=== PATIENT | male | born 1990 | race African-American/Black ===

== ENCOUNTER 2019-04-10 15:15 | Inpatient (IN) | payer OTHER ==
[2019-04-10 18:42] VITALS: BMI 26.9
--- NOTE | 2019-04-10 21:08 | HP ---
CIWA Score Nausea/Vomitin Muscle Tremors: 3 Anxiety: 3 Agitation: 1-Slight > Activity Paroxysmal Sweats: No Perspiration Orientation: 1-Uncertain about Date Tacttile Disturbances: 0-None Auditory Disturbances: 3-Moderate Harsh/Frighten Visual Disturbances: 3-Moderate Sensitivity Headache: 0-None Present CIWA-Ar Total Score: 17 - Admission Criteria OASAS Guidelines: Admission for Medically Managed Detox: Requires at least one of the followin. CIWA greater than 12 2. Seizures within the past 24 hours 3. Delirium tremens within the past 24 hours 4. Hallucinations within the past 24 hours 5. Acute intervention needed for co occurring medical disorder 6. Acute intervention needed for co occurring psychiatric disorder 7. Severe withdrawal that cannot be handled at a lower level of care (continued vomiting, continued diarrhea, abnormal vital signs) requiring intravenous medication and/or fluids 8. Patient presents the following: CIWA greater than 12 Admission Criteria Met: Admission criteria met Admitting History and Physical - Primary Care Physician PCP: Romario Rosario - Admission History Source: Patient Limitations to Obtaining History: No Limitations Admission ROS [facility] Chief Complaint: see if i can get myself together Allergies/Adverse Reactions: Allergies Allergy/AdvReac Type Severity Reaction Status Date / Time No Known Allergies Allergy Verified 04/10/19 18:31 History of Present Illness: etoh use began 10 y ago age [age] became problemtaic age [age] previous cocaine use was problematic began age 22 - last use 6 mos ago has urges but doesnt use marijuana use began age 14-13 [place] and isolates, shut off hasd [facility] in [place] [facility]4 years - Ebola screening Have you traveled outside of the country in the last 21 days: No Have you had contact with anyone from an Ebola affected area: No - Review of Systems Constitutional: Loss of Appetite EENT: reports: No Symptoms Reported Respiratory: reports: No Symptoms reported Cardiac: reports: No Symptoms Reported GI: reports: Nausea : reports: No Symptoms Reported Musculoskeletal: reports: No Symptoms Reported Integumentary: reports: No Symptoms Reported Neuro: reports: No Symptoms reported Endocrine: reports: No Symptoms Reported Hematology: reports: No Symptoms Reported Psychiatric: reports: Anxious Patient History - Patient Medical History Hx Anemia: No Hx Asthma: No Hx Chronic Obstructive Pulmonary Disease (COPD): No Hx Cancer: No Hx Cardiac Disorders: No Hx Congestive Heart Failure: No Hx Hypertension: Yes Hx Hypercholesterolemia: No Hx Pacemaker: No HX Cerebrovascular Accident: No Hx Seizures: No Hx Dementia: No Hx Diabetes: Yes Hx Gastrointestinal Disorders: No Hx Liver Disease: No Hx Genitourinary Disorders: No Hx Sexually Transmitted Disorders: No Hx Renal Disease (ESRD): No Hx Thyroid Disease: No Hx Human Immunodeficiency Virus (HIV): No Hx Hepatitis C: No Hx Depression: Yes Hx Suicide Attempt: No Hx Bipolar Disorder: Yes Hx Schizophrenia: No Other Medical History: as teen took seroquel an trazodone abilify - Patient Surgical History Past Surgical History: No - Smoking Cessation Smoking history: Current every day smoker Aproximately how many cigarettes per day: 3 Initiated information on smoking cessation: Yes 'Breaking Loose' booklet given: 04/10/19 - Substances abused Marijuana/Hashish Substance route: Smoking Frequency: Daily Amount used: 1 pack Age of first use: 19 Date of last use: 04/10/19 Alcohol Substance route: Oral Frequency: Daily Amount used: 2 pints of vodka/ 2 to 3 cans. Age of first use: 19 Date of last use: 04/10/19 Admission Physical Exam S - Vital Signs Vital Signs: Vital Signs - 24 hr 04/10/19 18:29 Temperature 95.9 F L Pulse Rate 75 Respiratory 16 Rate Blood Pressure 124/61 - Physical General Appearance: Yes: Disheveled, Alcohol on Breath, Irritable, Anxious HEENTM: Yes: EOMI, SHEA Respiratory: Yes: Chest Non-Tender, Lungs Clear, Normal Breath Sounds Neck: Yes: No masses,lesions,Nodules Breast: Yes: Breast Exam Deferred Cardiology: Yes: Within Normal Limits, Regular Rhythm, Regular Rate, S1, S2 Abdominal: Yes: Within Normal Limits, Normal Bowel Sounds, Non Tender, Flat, Soft Back: Yes: Within Normal Limits, Normal Inspection Musculoskeletal: Yes: Within Normal Limits, full range of Motion, Gait Steady Extremities: Yes: Normal Capillary Refill, Normal Inspection, Normal Range of Motion, Non-Tender Neurological: Yes: Within Normal Limits, net mender II-XII NML intact, Fully Oriented, Alert, Motor Strength 5/5, Normal Mood/Affect - Diagnostic (1) Alcohol dependence Current Visit: Yes Status: Chronic (2) Cocaine abuse Current Visit: Yes Status: Chronic (3) Diabetes type 1, uncontrolled Current Visit: Yes Status: Chronic (4) Hypertension Current Visit: Yes Status: Chronic (5) Alcohol withdrawal Current Visit: Yes Status: Acute Qualifiers: Complication of substance-induced condition: uncomplicated Qualified Code(s ): F10.230 - Alcohol dependence with withdrawal, uncomplicated Breathalyzer - Breathalyzer Breathalyzer: 0.071 Urine Drug Screen - Test Device Lot number: [id number] Expiration date: 12/16/20 - Control Is test valid?: Yes - Results Drug screen NEGATIVE: No Urine drug screen results: THC-Marijuana Inpatient Rehab Admission - Rehab Decision to Admit Inpatient rehab admission?: No
[2019-04-10] MEDS ORDERED: ACETAMINOPHEN 325 MG TABLET (FP) PO PRN ×2 (21:12)
[2019-04-10] MEDS ORDERED: MAG HYDROX/AL HYDROX/SIMETH 30 ML UNIT-DOSE CUP PO PRN (21:12)
[2019-04-10] MEDS ORDERED: MENTHOL/PHENOL 1 EACH UD MM PRN (21:12)
[2019-04-10] MEDS ORDERED: MAGNESIUM CITRATE 300 ML BOTTLE PO PRN (21:12)
[2019-04-10] MEDS ORDERED: BISMUTH SUBSALICYLATE 524 MG/30 ML UD PO PRN (21:12)
[2019-04-10] MEDS ORDERED: IBUPROFEN 400 MG TABLET (FP) PO PRN (21:12)
[2019-04-10] MEDS ORDERED: METHOCARBAMOL 500 MG TABLET PO PRN (21:12)
[2019-04-10] MEDS ORDERED: MAGNESIUM HYDROX 2400MG/30ML ORAL SUSPENSION 30 ML CUP PO PRN (21:12)
[2019-04-10] MEDS ORDERED: chlordiazePOXIDE HCL 10 MG CAPSULE PO PRN (21:12)
[2019-04-10] MEDS ORDERED: hydrOXYzine PAMOATE 25 MG CAPSULE (FP) PO PRN (21:12)
--- NOTE | 2019-04-10 22:36 | PN ---
S Progress Note Note: ekg with twi in v3, st elevation in v2 v3, diffuse precordial changes says he has had cardiac eval before denies chest pain high risk - ho dm and cocaine repeat in am indications for alert and chest pain warnings reviewed extensively
[2019-04-10] MEDS: NICOTINE 21 MG/24 HOURS TOPICAL PATCH TD SCH (23:14)
[2019-04-10] MEDS: chlordiazePOXIDE HCL 25 MG CAPSULE PO SCH (23:26)
[2019-04-10] MEDS: THIAMINE HCL 100 MG TABLET (FP) PO SCH (23:28)
[2019-04-10] MEDS: MELATONIN 5 MG TABLETS PO PRN (23:30)
[2019-04-10] MEDS: INSULIN (LEVEMIR) 100 UNITS/ML UNITS SQ SCH (23:36)
[2019-04-11] MEDS: chlordiazePOXIDE HCL 25 MG CAPSULE PO SCH ×3 (07:19→22:20)
[2019-04-11] MEDS: INSULIN SLIDING SCALE (NOVOLOG) 1 VIAL SQ SCH ×3 (07:20→16:51)
[2019-04-11 10:02] LABS: HEMATOCRIT 38.3 % (35.4-49); MCH 30.9 pg (25.7-33.7); MEAN PLT VOLUME 8.1 fl (7.5-11.1); PLATELET COUNT 238 K/MM3 (134-434); RDW 13.4 % (11.9-15.9); WHITE BLOOD COUNT 7.9 K/mm3 (4.0-10.0)
[2019-04-11 10:11] LABS: ALBUMIN 3.3 g/dl (3.4-5.0); BILIRUBIN,TOTAL 0.4 mg/dL (0.2-1); BLOOD UREA NITROGEN 14.8 mg/dL (7-18); CALCIUM 9.1 mg/dL (8.5-10.1); CREATININE 0.9 mg/dL (0.55-1.3); POTASSIUM 4.6 mmol/L (3.5-5.1)
--- NOTE | 2019-04-11 10:16 | PN ---
[facility] CIWA - CIWA Score Nausea/Vomitin-Mild Nausea/No Vomiting Muscle Tremors: 2 Anxiety: 2 Agitation: 2 Paroxysmal Sweats: No Perspiration Orientation: 0-Oriented Tacttile Disturbances: 1-Very Mild Itch/Numbness Auditory Disturbances: 0-None Visual Disturbances: 0-None Headache: 2-Mild CIWA-Ar Total Score: 10 S Progress Note (SOAP) Subjective: alert,irritable,anxious,interrupted sleep,tremor,no chest pain,no sob Objective: 04/11/19 10:14 Vital Signs Temperature 97.5 F L 04/11/19 09:37 Pulse Rate 65 04/11/19 09:37 Respiratory Rate 18 04/11/19 09:37 Blood Pressure 135/89 04/11/19 09:37 O2 Sat by Pulse Oximetry (%) 04/11/19 10:14 Laboratory Last Values WBC 7.9 K/mm3 (4.0-10.0) 04/11/19 08:15 RBC 4.20 M/mm3 (4.00-5.60) 04/11/19 08:15 Hgb 13.0 GM/dL (11.7-16.9) 04/11/19 08:15 Hct 38.3 % (35.4-49) 04/11/19 08:15 MCV 91.0 fl (80-96) 04/11/19 08:15 MCH 30.9 pg (25.7-33.7) 04/11/19 08:15 MCHC 34.0 g/dl (32.0-35.9) 04/11/19 08:15 RDW 13.4 % (11.9-15.9) 04/11/19 08:15 Plt Count 238 K/MM3 (134-434) 04/11/19 08:15 MPV 8.1 fl (7.5-11.1) 04/11/19 08:15 Sodium 141 mmol/L (136-145) 04/11/19 08:15 Potassium 4.6 mmol/L (3.5-5.1) 04/11/19 08:15 Chloride 107 mmol/L (98-107) 04/11/19 08:15 Carbon Dioxide 29 mmol/L (21-32) 04/11/19 08:15 Anion Gap 5 MMOL/L (8-16) L 04/11/19 08:15 BUN 14.8 mg/dL (7-18) 04/11/19 08:15 Creatinine 0.9 mg/dL (0.55-1.3) 04/11/19 08:15 Est GFR (CKD-EPI)AfAm 135.19 04/11/19 08:15 Est GFR (CKD-EPI)NonAf 116.64 04/11/19 08:15 POC Glucometer 209 UNITS (80-120) 04/10/19 23:23 Random Glucose 212 mg/dL (74-106) H 04/11/19 08:15 Calcium 9.1 mg/dL (8.5-10.1) 04/11/19 08:15 Total Bilirubin 0.4 mg/dL (0.2-1) 04/11/19 08:15 AST 15 U/L (15-37) 04/11/19 08:15 ALT 24 U/L (13-61) 04/11/19 08:15 Alkaline Phosphatase 81 U/L (45-117) 04/11/19 08:15 Total Protein 6.0 g/dl (6.4-8.2) L 04/11/19 08:15 Albumin 3.3 g/dl (3.4-5.0) L 04/11/19 08:15 04/11/19 10:15 rpr pending Assessment: 04/11/19 10:16 withdrawal symptom Plan: continue detox librium regimen,bgm monitoring with insulin coverage
[2019-04-11] MEDS: NICOTINE 21 MG/24 HOURS TOPICAL PATCH TD SCH (10:48)
[2019-04-11] MEDS: PRENATAL VITAMINS W/ FOLIC ACID TABLET (FP) PO SCH (10:48)
[2019-04-11] MEDS: GABAPENTIN 400 MG CAPSULE (FP) PO SCH (10:48)
[2019-04-11] MEDS: ENALAPRIL MALEATE 10 MG TABLET (FP) PO SCH (14:54)
[2019-04-11] MEDS ORDERED: INSULIN (NOVOLOG) ASPART 100 UNITS/ML 10ML VIAL SQ ONE (19:33)
--- NOTE | 2019-04-11 19:36 | PN ---
[facility] Progress Note Note: Vital Signs Temperature 98.8 F 04/11/19 17:04 Pulse Rate 77 04/11/19 17:04 Respiratory Rate 18 04/11/19 17:04 Blood Pressure 154/77 04/11/19 17:04 O2 Sat by Pulse Oximetry (%) Laboratory Last Values WBC 7.9 K/mm3 (4.0-10.0) 04/11/19 08:15 RBC 4.20 M/mm3 (4.00-5.60) 04/11/19 08:15 Hgb 13.0 GM/dL (11.7-16.9) 04/11/19 08:15 Hct 38.3 % (35.4-49) 04/11/19 08:15 MCV 91.0 fl (80-96) 04/11/19 08:15 MCH 30.9 pg (25.7-33.7) 04/11/19 08:15 MCHC 34.0 g/dl (32.0-35.9) 04/11/19 08:15 RDW 13.4 % (11.9-15.9) 04/11/19 08:15 Plt Count 238 K/MM3 (134-434) 04/11/19 08:15 MPV 8.1 fl (7.5-11.1) 04/11/19 08:15 Sodium 141 mmol/L (136-145) 04/11/19 08:15 Potassium 4.6 mmol/L (3.5-5.1) 04/11/19 08:15 Chloride 107 mmol/L (98-107) 04/11/19 08:15 Carbon Dioxide 29 mmol/L (21-32) 04/11/19 08:15 Anion Gap 5 MMOL/L (8-16) L 04/11/19 08:15 BUN 14.8 mg/dL (7-18) 04/11/19 08:15 Creatinine 0.9 mg/dL (0.55-1.3) 04/11/19 08:15 Est GFR (CKD-EPI)AfAm 135.19 04/11/19 08:15 Est GFR (CKD-EPI)NonAf 116.64 04/11/19 08:15 POC Glucometer 327 UNITS (80-120) 04/11/19 19:28 Random Glucose 212 mg/dL (74-106) H 04/11/19 08:15 Calcium 9.1 mg/dL (8.5-10.1) 04/11/19 08:15 Total Bilirubin 0.4 mg/dL (0.2-1) 04/11/19 08:15 AST 15 U/L (15-37) 04/11/19 08:15 ALT 24 U/L (13-61) 04/11/19 08:15 Alkaline Phosphatase 81 U/L (45-117) 04/11/19 08:15 Total Protein 6.0 g/dl (6.4-8.2) L 04/11/19 08:15 Albumin 3.3 g/dl (3.4-5.0) L 04/11/19 08:15 RPR Titer Nonreactive (NONREACTIVE) 04/11/19 08:15 BGM 327 patient reports takes novolg 4x per day at home with levemir 24 units HS novolog 4 unit ordered patient scheduled for levemir 24 mg at 10 PM continue to monitor
[2019-04-11] MEDS ORDERED: INSULIN SLIDING SCALE (NOVOLOG) 1 VIAL SQ ONE (20:02)
[2019-04-11] MEDS: THIAMINE HCL 100 MG TABLET (FP) PO SCH (22:20)
[2019-04-11] MEDS: MELATONIN 5 MG TABLETS PO PRN (22:23)
[2019-04-11] MEDS: INSULIN (LEVEMIR) 100 UNITS/ML UNITS SQ SCH (22:23)
[2019-04-11] MEDS: NICOTINE POLACRILEX 2 MG GUM BUC PRN (23:14)
[2019-04-12] MEDS: INSULIN SLIDING SCALE (NOVOLOG) 1 VIAL SQ SCH ×2 (08:00→11:30)
[2019-04-12] MEDS: chlordiazePOXIDE 5 MG CAPSULE PO SCH ×3 (08:29→21:32)
--- NOTE | 2019-04-12 10:04 | PN ---
S CIWA - CIWA Score Nausea/Vomitin-Mild Nausea/No Vomiting Muscle Tremors: 1-None Visible, but [place] Anxiety: 2 Agitation: 2 Paroxysmal Sweats: No Perspiration Orientation: 0-Oriented Tacttile Disturbances: 1-Very Mild Itch/Numbness Auditory Disturbances: 0-None Visual Disturbances: 0-None Headache: 1-Very Mild CIWA-Ar Total Score: 8 BHS Progress Note (SOAP) Subjective: alert,irritable,anxious,interrupted sleep,pain in the body Objective: 04/12/19 10:02 Vital Signs Temperature 97.7 F 04/12/19 09:19 Pulse Rate 63 04/12/19 09:19 Respiratory Rate 18 04/12/19 09:19 Blood Pressure 112/64 04/12/19 09:19 O2 Sat by Pulse Oximetry (%) Laboratory Results - last 24 hr 04/11/19 04/11/19 04/11/19 08:15 08:15 08:15 WBC 7.9 RBC 4.20 Hgb 13.0 Hct 38.3 MCV 91.0 MCH 30.9 MCHC 34.0 RDW 13.4 Plt Count 238 MPV 8.1 Sodium 141 Potassium 4.6 Chloride 107 Carbon Dioxide 29 Anion Gap 5 L BUN 14.8 Creatinine 0.9 Est GFR (CKD-EPI)AfAm 135.19 Est GFR (CKD-EPI)NonAf 116.64 POC Glucometer Random Glucose 212 H Calcium 9.1 Total Bilirubin 0.4 AST 15 ALT 24 Alkaline Phosphatase 81 Total Protein 6.0 L Albumin 3.3 L RPR Titer Nonreactive 04/11/19 04/11/19 04/11/19 10:52 16:47 19:28 WBC RBC Hgb Hct MCV MCH MCHC RDW Plt Count MPV Sodium Potassium Chloride Carbon Dioxide Anion Gap BUN Creatinine Est GFR (CKD-EPI)AfAm Est GFR (CKD-EPI)NonAf POC Glucometer 262 364 327 Random Glucose Calcium Total Bilirubin AST ALT Alkaline Phosphatase Total Protein Albumin RPR Titer 04/11/19 04/12/19 22:16 05:30 WBC RBC Hgb Hct MCV MCH MCHC RDW Plt Count MPV Sodium Potassium Chloride Carbon Dioxide Anion Gap BUN Creatinine Est GFR (CKD-EPI)AfAm Est GFR (CKD-EPI)NonAf POC Glucometer 302 319 Random Glucose Calcium Total Bilirubin AST ALT Alkaline Phosphatase Total Protein Albumin RPR Titer Assessment: 04/12/19 10:03 withdrawal symptom Plan: continue detox librium regimen with insulin coverage sliding scale
[2019-04-12] MEDS: ENALAPRIL MALEATE 10 MG TABLET (FP) PO SCH (11:00)
[2019-04-12] MEDS: NICOTINE 21 MG/24 HOURS TOPICAL PATCH TD SCH ×2 (11:10→11:15)
[2019-04-12] MEDS: PRENATAL VITAMINS W/ FOLIC ACID TABLET (FP) PO SCH (11:11)
[2019-04-12] MEDS: GABAPENTIN 400 MG CAPSULE (FP) PO SCH (11:12)
--- NOTE | 2019-04-12 13:18 | EKG ---
Test Reason : Blood Pressure : / mmHG Vent. Rate : 060 BPM Atrial Rate : 060 BPM P-R Int : 178 ms QRS Dur : 098 ms QT Int : 382 ms P-R-T Axes : 068 023 002 degrees QTc Int : 382 ms NORMAL SINUS RHYTHM WITH SINUS ARRHYTHMIA ST ELEVATION, CONSIDER EARLY REPOLARIZATION, PERICARDITIS, OR INJURY NONSPECIFIC T WAVE ABNORMALITY NO PREVIOUS ECGS AVAILABLE Confirmed by NAMAN RODGERS MD ([id number]) on 04/12/2019 1:17:51 PM Referred By: Confirmed By:NAMAN RODGERS MD
--- NOTE | 2019-04-12 13:33 | PN ---
S Progress Note Note: bgm 404,will give novolog 12 unit sq,bgm monitoring with sliding scale
[2019-04-12] MEDS ORDERED: INSULIN SLIDING SCALE (NOVOLOG) 1 VIAL SQ ONE ×2 (13:43→17:05)
[2019-04-12] MEDS ORDERED: INSULIN (NOVOLOG) ASPART 100 UNITS/ML 10ML VIAL SQ ONE (14:00)
--- NOTE | 2019-04-12 14:30 | PN ---
S Progress Note Note: discussed with patient,patient would like to get novolog 12 unit before each meal and levimir 27 unit hs, will do bgm achs
[2019-04-12] MEDS: INSULIN (NOVOLOG) ASPART 100 UNITS/ML 10ML VIAL SQ SCH (17:16)
[2019-04-12] MEDS: NICOTINE POLACRILEX 2 MG GUM BUC PRN (18:25)
[2019-04-12] MEDS ORDERED: INSULIN (LEVEMIR) 100 UNITS/ML UNITS SQ SCH (22:00)
[2019-04-12] MEDS: THIAMINE HCL 100 MG TABLET (FP) PO SCH (22:32)
[2019-04-12] MEDS: MELATONIN 5 MG TABLETS PO PRN (22:33)
[2019-04-13] MEDS ORDERED: chlordiazePOXIDE HCL 10 MG CAPSULE PO PRN
[2019-04-13] MEDS ORDERED: chlordiazePOXIDE HCL 10 MG CAPSULE PO SCH (05:00)
[2019-04-13] MEDS ORDERED: INSULIN SLIDING SCALE (NOVOLOG) 1 VIAL SQ ONE (09:26)
[2019-04-13] MEDS: NICOTINE 21 MG/24 HOURS TOPICAL PATCH TD SCH (09:29)
[2019-04-13] MEDS: PRENATAL VITAMINS W/ FOLIC ACID TABLET (FP) PO SCH (09:29)
--- NOTE | 2019-04-13 10:51 | PN ---
[facility] CIWA - CIWA Score Nausea/Vomitin-No Nausea/No Vomiting Muscle Tremors: None Anxiety: 2 Agitation: 0-Normal Activity Paroxysmal Sweats: 2 Orientation: 0-Oriented Tacttile Disturbances: 0-None Auditory Disturbances: 0-None Visual Disturbances: 0-None Headache: 1-Very Mild CIWA-Ar Total Score: 5 BHS Progress Note (SOAP) Subjective: c/o mild anxiety, sweats, and headache. Objective: 04/13/19 10:48 Vital Signs 04/13/19 03:30 Respiratory 18 Rate Laboratory Last Values WBC 7.9 K/mm3 (4.0-10.0) 04/11/19 08:15 RBC 4.20 M/mm3 (4.00-5.60) 04/11/19 08:15 Hgb 13.0 GM/dL (11.7-16.9) 04/11/19 08:15 Hct 38.3 % (35.4-49) 04/11/19 08:15 MCV 91.0 fl (80-96) 04/11/19 08:15 MCH 30.9 pg (25.7-33.7) 04/11/19 08:15 MCHC 34.0 g/dl (32.0-35.9) 04/11/19 08:15 RDW 13.4 % (11.9-15.9) 04/11/19 08:15 Plt Count 238 K/MM3 (134-434) 04/11/19 08:15 MPV 8.1 fl (7.5-11.1) 04/11/19 08:15 Sodium 141 mmol/L (136-145) 04/11/19 08:15 Potassium 4.6 mmol/L (3.5-5.1) 04/11/19 08:15 Chloride 107 mmol/L (98-107) 04/11/19 08:15 Carbon Dioxide 29 mmol/L (21-32) 04/11/19 08:15 Anion Gap 5 MMOL/L (8-16) L 04/11/19 08:15 BUN 14.8 mg/dL (7-18) 04/11/19 08:15 Creatinine 0.9 mg/dL (0.55-1.3) 04/11/19 08:15 Est GFR (CKD-EPI)AfAm 135.19 04/11/19 08:15 Est GFR (CKD-EPI)NonAf 116.64 04/11/19 08:15 POC Glucometer 275 UNITS (80-120) 04/13/19 09:23 Random Glucose 212 mg/dL (74-106) H 04/11/19 08:15 Calcium 9.1 mg/dL (8.5-10.1) 04/11/19 08:15 Total Bilirubin 0.4 mg/dL (0.2-1) 04/11/19 08:15 AST 15 U/L (15-37) 04/11/19 08:15 ALT 24 U/L (13-61) 04/11/19 08:15 Alkaline Phosphatase 81 U/L (45-117) 04/11/19 08:15 Total Protein 6.0 g/dl (6.4-8.2) L 04/11/19 08:15 Albumin 3.3 g/dl (3.4-5.0) L 04/11/19 08:15 RPR Titer Nonreactive (NONREACTIVE) 04/11/19 08:15 Labs noted. Assessment: 04/13/19 10:49 AOX3, in no acute respiratory distress. Full ROM, ambulating in the unit. Mild withdrawal symptoms. For d/c tomorrow. Plan: continue detox. D/C in AM.
[2019-04-13] MEDS: GABAPENTIN 400 MG CAPSULE (FP) PO SCH (10:52)
[2019-04-13] MEDS: ENALAPRIL MALEATE 10 MG TABLET (FP) PO SCH (10:53)
[2019-04-13] MEDS: INSULIN (NOVOLOG) ASPART 100 UNITS/ML 10ML VIAL SQ SCH (10:54)
[2019-04-13 13:50] VITALS: BP 147/88; PULSE 85; TEMP 99.7
--- NOTE | 2019-04-13 14:29 | DS ---
[facility] Detox Discharge Summary Admission Date: 04/10/19 Discharge Date: 04/13/19 - History Present History: Alcohol Dependence, Cannabis Dependence Additional Comments: Pt has completed his detox protocol and is medically cleared and discharged to [facility] for continued management. Pt is alert and oriented x3 and in no respiratory distress. Pertinent Past History: h/o DM, alcohol, and cannabis use disorder. - Physical Exam Results Vital Signs: Vital Signs Temperature 99.7 F H 04/13/19 13:49 Pulse Rate 85 04/13/19 13:49 Respiratory Rate 16 04/13/19 13:49 Blood Pressure 147/88 04/13/19 13:49 O2 Sat by Pulse Oximetry (%) Vital Signs 04/13/19 04/13/19 08:00 13:49 Temperature 97.7 F 99.7 F H Pulse Rate 70 85 Respiratory 20 16 Rate Blood Pressure 141/72 147/88 Laboratory Last Values WBC 7.9 K/mm3 (4.0-10.0) 04/11/19 08:15 RBC 4.20 M/mm3 (4.00-5.60) 04/11/19 08:15 Hgb 13.0 GM/dL (11.7-16.9) 04/11/19 08:15 Hct 38.3 % (35.4-49) 04/11/19 08:15 MCV 91.0 fl (80-96) 04/11/19 08:15 MCH 30.9 pg (25.7-33.7) 04/11/19 08:15 MCHC 34.0 g/dl (32.0-35.9) 04/11/19 08:15 RDW 13.4 % (11.9-15.9) 04/11/19 08:15 Plt Count 238 K/MM3 (134-434) 04/11/19 08:15 MPV 8.1 fl (7.5-11.1) 04/11/19 08:15 Sodium 141 mmol/L (136-145) 04/11/19 08:15 Potassium 4.6 mmol/L (3.5-5.1) 04/11/19 08:15 Chloride 107 mmol/L (98-107) 04/11/19 08:15 Carbon Dioxide 29 mmol/L (21-32) 04/11/19 08:15 Anion Gap 5 MMOL/L (8-16) L 04/11/19 08:15 BUN 14.8 mg/dL (7-18) 04/11/19 08:15 Creatinine 0.9 mg/dL (0.55-1.3) 04/11/19 08:15 Est GFR (CKD-EPI)AfAm 135.19 04/11/19 08:15 Est GFR (CKD-EPI)NonAf 116.64 04/11/19 08:15 POC Glucometer 275 UNITS (80-120) 04/13/19 09:23 Random Glucose 212 mg/dL (74-106) H 04/11/19 08:15 Calcium 9.1 mg/dL (8.5-10.1) 04/11/19 08:15 Total Bilirubin 0.4 mg/dL (0.2-1) 04/11/19 08:15 AST 15 U/L (15-37) 04/11/19 08:15 ALT 24 U/L (13-61) 04/11/19 08:15 Alkaline Phosphatase 81 U/L (45-117) 04/11/19 08:15 Total Protein 6.0 g/dl (6.4-8.2) L 04/11/19 08:15 Albumin 3.3 g/dl (3.4-5.0) L 04/11/19 08:15 RPR Titer Nonreactive (NONREACTIVE) 04/11/19 08:15 Labs noted. Pertinent Admission Physical Exam Findings: withdrawal symptoms. - Treatment Hospital Course: Detox Protocol Followed, Detoxed Safely, Responded well, Discharged Condition Good, Rehab Referral Accepted Patient has Accepted a Rehab Referral to: [facility] - Medication Discharge Medications: Ambulatory Orders Enalapril Maleate [Vasotec -] 1 tablet PO DAILY 04/10/19 - Diagnosis (1) Alcohol dependence Current Visit: Yes Status: Chronic (2) Cocaine abuse Current Visit: Yes Status: Chronic (3) Diabetes type 1, uncontrolled Current Visit: Yes Status: Chronic (4) Hypertension Current Visit: Yes Status: Chronic - AMA Did Patient Leave Against Medical Advice: No
[2019-04-14] MEDS ORDERED: chlordiazePOXIDE HCL 10 MG CAPSULE PO ONE (05:00)
== END 2019-04-13 12:49 | disposition other institution (70) | DRG 774 ==
LOC: YASAS 15:15 → Y6N 22:07
PROVIDERS: ADMIT Allergy & Immunology; ATTEND Allergy & Immunology
PROC: HZ2ZZZZ Detoxification Services for Substance Abuse Treatment (ICD-10-PCS; principal; 2019-04-10)
DX: F10.230 Alcohol dependence with withdrawal, uncomplicated (principal); F12.20 Cannabis dependence, uncomplicated; F14.10 Cocaine abuse, uncomplicated; E10.65 Type 1 diabetes mellitus with hyperglycemia; Z79.4 Long term (current) use of insulin; I10 Essential (primary) hypertension; R94.31 Abnormal electrocardiogram [ECG] [EKG]; Z59.0 Homelessness
CPT/HCPCS: 36415; 80053; 82962; 85027; 86593; 93005; 93010

== ENCOUNTER 2019-04-13 13:13 | Inpatient (IN) | payer OTHER ==
[2019-04-13] MEDS ORDERED: MENTHOL/PHENOL 1 EACH UD MM PRN (14:33)
[2019-04-13] MEDS ORDERED: IBUPROFEN 400 MG TABLET (FP) PO PRN (14:33)
[2019-04-13] MEDS ORDERED: MAGNESIUM HYDROX 2400MG/30ML ORAL SUSPENSION 30 ML CUP PO PRN (14:33)
[2019-04-13] MEDS ORDERED: LOPERAMIDE HCL 2 MG CAPSULE PO PRN (14:33)
[2019-04-13] MEDS ORDERED: ACETAMINOPHEN 325 MG TABLET (FP) PO PRN (14:33)
[2019-04-13] MEDS ORDERED: P-EPHED 60MG/TRIPROLIDI 2.5MG TABLET PO PRN (14:33)
[2019-04-13] MEDS ORDERED: MAGNESIUM CITRATE 300 ML BOTTLE PO PRN (14:33)
[2019-04-13] MEDS ORDERED: guaiFENesin 200 MG/10 ML 10 ML UNIT-DOSE CUPS PO PRN (14:33)
[2019-04-13] MEDS ORDERED: MAG HYDROX/AL HYDROX/SIMETH 30 ML UNIT-DOSE CUP PO PRN (14:33)
--- NOTE | 2019-04-13 14:42 | HP ---
[facility] Rehab Assess/Revision - Admission History Ad[facility] to Rehab from[facility] Date of Admission to Rehab: 04/13/2019 - Vital signs Vital Signs: stable. - Findings Detox History & Physical reviewed: Yes Concur with findings: Yes Comments/Additional Findings: Pt is medically stable and is discharged to [facility]. Inpatient Rehab Admission - Rehab Decision to Admit Inpatient rehab admission?: Yes - Initial Determination Are CD services needed?: Yes Free of communicable disease: Yes Not in need of hospitalization: Yes - Rehab Admission Criteria Previous failed treatment: Yes Poor recovery environment: Yes Comorbidities: Yes Lacks judgement: No Patient is meeting Inpatient Rehab admission criteria:: Yes
[2019-04-13] MEDS: INSULIN (NOVOLOG) ASPART 100 UNITS/ML 10ML VIAL SQ SCH (16:52)
[2019-04-13] MEDS: INSULIN (LEVEMIR) 100 UNITS/ML UNITS SQ SCH (21:37)
[2019-04-13] MEDS: hydrOXYzine PAMOATE 25 MG CAPSULE (FP) PO PRN (21:38)
[2019-04-13] MEDS: THIAMINE HCL 100 MG TABLET (FP) PO SCH (21:38)
[2019-04-14] MEDS: INSULIN (NOVOLOG) ASPART 100 UNITS/ML 10ML VIAL SQ SCH ×3 (07:42→16:31)
[2019-04-14] MEDS: GABAPENTIN 400 MG CAPSULE (FP) PO SCH (11:34)
[2019-04-14] MEDS: NICOTINE 21 MG/24 HOURS TOPICAL PATCH TD SCH (11:34)
[2019-04-14] MEDS: ENALAPRIL MALEATE 10 MG TABLET (FP) PO SCH (11:35)
[2019-04-14] MEDS: PRENATAL VITAMINS W/ FOLIC ACID TABLET (FP) PO SCH (11:35)
[2019-04-14] MEDS: THIAMINE HCL 100 MG TABLET (FP) PO SCH (21:09)
[2019-04-14] MEDS: MELATONIN 5 MG TABLETS PO PRN (21:09)
[2019-04-14] MEDS: hydrOXYzine PAMOATE 25 MG CAPSULE (FP) PO PRN (21:10)
[2019-04-14] MEDS: INSULIN (LEVEMIR) 100 UNITS/ML UNITS SQ SCH (21:11)
[2019-04-14] MEDS: NICOTINE POLACRILEX 2 MG GUM BUC PRN (23:20)
[2019-04-15] MEDS ORDERED: INSULIN (NOVOLOG) ASPART 100 UNITS/ML 10ML VIAL ONE (08:14)
[2019-04-15] MEDS: INSULIN (NOVOLOG) ASPART 100 UNITS/ML 10ML VIAL SQ SCH ×3 (08:15→16:59)
[2019-04-15] MEDS: PRENATAL VITAMINS W/ FOLIC ACID TABLET (FP) PO SCH (11:25)
[2019-04-15] MEDS: GABAPENTIN 400 MG CAPSULE (FP) PO SCH (11:25)
[2019-04-15] MEDS: ENALAPRIL MALEATE 10 MG TABLET (FP) PO SCH (11:25)
[2019-04-15] MEDS: NICOTINE 21 MG/24 HOURS TOPICAL PATCH TD SCH (11:27)
[2019-04-15] MEDS: INSULIN (LEVEMIR) 100 UNITS/ML UNITS SQ SCH (21:44)
[2019-04-15] MEDS: THIAMINE HCL 100 MG TABLET (FP) PO SCH (21:46)
[2019-04-15] MEDS: MELATONIN 5 MG TABLETS PO PRN (21:46)
[2019-04-15] MEDS: hydrOXYzine PAMOATE 25 MG CAPSULE (FP) PO PRN (21:47)
[2019-04-15] MEDS: NICOTINE POLACRILEX 2 MG GUM BUC PRN (23:53)
[2019-04-16] MEDS: INSULIN (NOVOLOG) ASPART 100 UNITS/ML 10ML VIAL SQ SCH ×3 (06:53→16:59)
[2019-04-16] MEDS: NICOTINE 21 MG/24 HOURS TOPICAL PATCH TD SCH (10:41)
[2019-04-16] MEDS: GABAPENTIN 400 MG CAPSULE (FP) PO SCH (10:41)
[2019-04-16] MEDS: ENALAPRIL MALEATE 10 MG TABLET (FP) PO SCH (10:41)
[2019-04-16] MEDS: PRENATAL VITAMINS W/ FOLIC ACID TABLET (FP) PO SCH (10:41)
[2019-04-16] MEDS ORDERED: INSULIN (NOVOLOG) ASPART 100 UNITS/ML 10ML VIAL ONE (13:20)
[2019-04-16] MEDS: INSULIN (LEVEMIR) 100 UNITS/ML UNITS SQ SCH (22:09)
[2019-04-16] MEDS: MELATONIN 5 MG TABLETS PO PRN (22:10)
[2019-04-16] MEDS: THIAMINE HCL 100 MG TABLET (FP) PO SCH (22:10)
[2019-04-16] MEDS: NICOTINE POLACRILEX 2 MG GUM BUC PRN (22:11)
[2019-04-17] MEDS: INSULIN (NOVOLOG) ASPART 100 UNITS/ML 10ML VIAL SQ SCH ×3 (07:14→17:31)
[2019-04-17] MEDS: ENALAPRIL MALEATE 10 MG TABLET (FP) PO SCH (10:42)
[2019-04-17] MEDS: GABAPENTIN 400 MG CAPSULE (FP) PO SCH (10:42)
[2019-04-17] MEDS: NICOTINE 21 MG/24 HOURS TOPICAL PATCH TD SCH (10:42)
[2019-04-17] MEDS: PRENATAL VITAMINS W/ FOLIC ACID TABLET (FP) PO SCH (10:42)
[2019-04-17] MEDS: THIAMINE HCL 100 MG TABLET (FP) PO SCH (21:21)
[2019-04-17] MEDS: INSULIN (LEVEMIR) 100 UNITS/ML UNITS SQ SCH (21:21)
[2019-04-17] MEDS: MELATONIN 5 MG TABLETS PO PRN (21:21)
[2019-04-18] MEDS ORDERED: INSULIN (NOVOLOG) ASPART 100 UNITS/ML 10ML VIAL ONE (06:21)
[2019-04-18] MEDS: INSULIN (NOVOLOG) ASPART 100 UNITS/ML 10ML VIAL SQ SCH ×3 (07:10→17:03)
[2019-04-18] MEDS: PRENATAL VITAMINS W/ FOLIC ACID TABLET (FP) PO SCH (11:04)
[2019-04-18] MEDS: ENALAPRIL MALEATE 10 MG TABLET (FP) PO SCH (11:05)
[2019-04-18] MEDS: GABAPENTIN 400 MG CAPSULE (FP) PO SCH (11:05)
[2019-04-18] MEDS: NICOTINE 21 MG/24 HOURS TOPICAL PATCH TD SCH (11:05)
[2019-04-18] MEDS: INSULIN (LEVEMIR) 100 UNITS/ML UNITS SQ SCH (21:39)
[2019-04-18] MEDS: MELATONIN 5 MG TABLETS PO PRN (21:40)
[2019-04-18] MEDS: THIAMINE HCL 100 MG TABLET (FP) PO SCH (21:40)
[2019-04-18] MEDS: NICOTINE POLACRILEX 2 MG GUM BUC PRN (21:42)
[2019-04-18] MEDS: hydrOXYzine PAMOATE 25 MG CAPSULE (FP) PO PRN (21:42)
[2019-04-19] MEDS: INSULIN (NOVOLOG) ASPART 100 UNITS/ML 10ML VIAL SQ SCH ×2 (07:08→12:06)
[2019-04-19 07:25] VITALS: TEMP 97.5
[2019-04-19] MEDS: GABAPENTIN 400 MG CAPSULE (FP) PO SCH (10:26)
[2019-04-19] MEDS: ENALAPRIL MALEATE 10 MG TABLET (FP) PO SCH (10:26)
[2019-04-19] MEDS: PRENATAL VITAMINS W/ FOLIC ACID TABLET (FP) PO SCH (10:26)
[2019-04-19] MEDS: NICOTINE 21 MG/24 HOURS TOPICAL PATCH TD SCH (10:27)
[2019-04-19 11:02] VITALS: BP 157/92; PULSE 96
--- NOTE | 2019-04-19 11:29 | DS ---
[facility] Rehab Discharge Summary - [facility] Rehab Discharge Summary Admission Date: 04/13/19 Discharge Date: 04/19/19 - History Present History: Alcohol dependence, Cannabis dependence, Cocaine dependence ( sporadic use) Additional Comments: Pt is a 29 y/o male admitted to rehab and requesting for early discharge today for personal reasons. Reports he plans to move down to [place] to his father and family members. Pt reports he has a primary care provider for medical management at [place], [place]. Pt met with his counselor, Ms Letitia Prakash to discuss aftercare plan and has been referred to [facility] for skilled nursing care treatment. Pertinent Past History: Type 1 DM HTN - Discharge Physical Exam Vital Signs: Vital Signs Temperature 97.5 F L 04/19/19 07:24 Pulse Rate 96 H 04/19/19 10:00 Respiratory Rate 18 04/19/19 07:24 Blood Pressure 157/92 04/19/19 10:00 O2 Sat by Pulse Oximetry (%) Alert o x 3 nad oob ambulating with steady gait cardiac;s1 s2, rrr lungs:cta,gwendolyn. abdomen:soft,+bs,flat,nt extremities/skin:no edema,full ROM,skin intact Pertinent Admission Physical Exam Findings: Laboratory Tests 04/13/19 04/13/19 04/13/19 16:50 21:04 22:04 POC Glucometer 417 328 423 04/14/19 04/14/19 04/14/19 06:50 12:10 16:33 POC Glucometer 200 349 313 04/14/19 04/15/19 04/15/19 21:08 08:11 11:30 POC Glucometer 199 264 302 04/15/19 04/15/19 04/16/19 16:56 21:44 06:52 POC Glucometer 143 126 242 04/16/19 04/16/19 04/16/19 11:53 16:57 22:08 POC Glucometer 174 481 307 04/17/19 04/17/19 04/17/19 07:13 11:56 17:30 POC Glucometer 326 346 274 04/17/19 04/18/19 04/18/19 20:50 07:09 12:15 POC Glucometer 275 269 246 04/18/19 04/18/19 04/19/19 17:00 21:37 07:04 POC Glucometer 160 497 218 - Treatment Discharge Condition: Discharge condition good Hospital Course: Rehabilitated safely and responded well CD aftercare referral accepted - Medication Discharge Medications: Ambulatory Orders Enalapril Maleate [Vasotec -] 1 tablet PO DAILY #14 tablet 04/19/19 - Medication-Assisted Treatment (MAT) Medication-Assisted Treatment (MAT): No - Discharge Instructions Diet, activity, other medical instructions: Diet:NCS/ROB Activity: oob ad lucía Other medical instructions:Follow up with primary car provider within 1 week after discharge from rehab. follow up with CD aftercare as recommended. - Diagnosis (1) Alcohol dependence Current Visit: Yes Status: Chronic Qualifiers: Substance use status: uncomplicated Qualified Code(s): F10.20 - Alcohol dependence, uncomplicated (2) Diabetes type 1, uncontrolled Current Visit: Yes Status: Chronic Qualifiers: Glycemic state: with hyperglycemia Qualified Code(s): E10.65 - Type 1 diabetes mellitus with hyperglycemia (3) Hypertension Current Visit: Yes Status: Chronic Qualifiers: Hypertension type: unspecified Qualified Code(s): I10 - Essential (primary ) hypertension - Follow-up Referral Minutes to complete discharge: 25 - AMA Did Patient Leave Against Medical Advice: No Additional Comments: Courtesy Rx for enalapril 10 mg po daily sent to [facility] @ [address] for tow picker. Pt reports he has the rest of his medications(Levemir and at home and will follow up with his primary care doctor for further medical management.
== END 2019-04-19 15:40 | disposition home or self-care (01) | DRG 772 ==
LOC: YASAS 13:13 → Y5N 13:14
PROVIDERS: ADMIT Neuromusculoskeletal Medicine & OMM; ATTEND Neuromusculoskeletal Medicine & OMM
PROC: HZ42ZZZ Group Counseling for Substance Abuse Treatment, Cognitive-Behavioral (ICD-10-PCS; principal; 2019-04-13)
DX: F10.20 Alcohol dependence, uncomplicated (principal); F14.10 Cocaine abuse, uncomplicated; F12.20 Cannabis dependence, uncomplicated; I10 Essential (primary) hypertension; E10.65 Type 1 diabetes mellitus with hyperglycemia; Z79.4 Long term (current) use of insulin
CPT/HCPCS: 82962